=== PATIENT | female | born 1965 | race Hispanic/Latino ===

== ENCOUNTER 2018-02-09 09:10 | Outpatient (CLI) | payer BC ==
--- NOTE | 2018-02-09 13:10 | Mammography Report ---
STEREOTACTIC VACUUM ASSISTED BIOPSY WITH CLIP PLACEMENT LEFT BREAST: 02/09/18 09:10:00 CLINICAL: Architectural distortion of the upper inner left breast. Negative ultrasound. COMPARISON:Recent [place] [employer] [facility] mammogram FINDINGS: Consent for the procedure was obtained. A spiculated density with architectural distortion was targeted in the upper inner breast with stereotactic guidance. The skin was prepped with Betadine and anesthetized with 1% lidocaine. 1 % lidocaine without epinephrine was injected for deeper anesthesia. 8 gauge Mammotome biopsy was performed from a CC from above approach through a small dermatotomy. Prefire and post-fire images demonstrated satisfactory positioning of the probe. Samples were obtained around the clock face. A specimen radiograph was obtained and shows questionable fragments of a spiculated lesion. 2 clips were placed at the biopsy site. The second clip was deployed after the first clip was not identified on image. However, the second clip was also not visible and appear to be obscured by a portion of the metal plate at the superior aspect of the biopsy window. The probe was removed and hemostasis was achieved with pressure to the site. A sterile dressing was applied. The patient tolerated the procedure well and there were no apparent complications. A two-view mammogram demonstrated concordant placement of 2 biopsy clips in the CC projection but slight discordance in the lateral view. The clips are approximately 1.5 cm cephalad to vocal architectural distortion which is less prominent than on the prebiopsy CC views. IMPRESSION: Uncomplicated stereotactic biopsy with placement of 2 clips in the left breast.
--- NOTE | 2018-02-09 13:11 | Mammography Report ---
LEFT DIGITAL DIAGNOSTIC MAMMOGRAM: 02/09/18 09:10:00 CLINICAL: For clip placement immediately status post stereotactic biopsy. COMPARISON:Recent [place] [employer] mammogram FINDINGS: 2 biopsy clips are identified in the upper inner quadrant. Clip deployment concordant in the CC view but slightly discordant in the lateral view with the clips approximately 1.5 cm cephalad to an area of architectural distortion. IMPRESSION: Slightly discordant clip placement status post stereotactic biopsy. BI-RADS CATEGORY: 4--Suspicious Pathology pending.
== END 2018-02-09 09:11 | disposition home or self-care (01) ==
LOC: SPVWC 09:10
PROVIDERS: ATTEND Surgery
DX: N64.89 Other specified disorders of breast (principal); R92.0 Mammographic microcalcification found on diagnostic imaging of breast
CPT/HCPCS: 19081; 77065; 88305; A4648